=== PATIENT | female | born 1995 | race Caucasian/White ===

== ENCOUNTER 2016-08-04 18:31 | Emergency (ER) | payer OTHER ==
[2016-08-04 18:42] VITALS: BP 131/69; PULSE 76; RESP 18; TEMP 97.2
--- NOTE | 2016-08-04 19:46 | XR ---
EXAMINATION TYPE: XR cervical spine limited DATE OF EXAM: 08/04/2016 7:31 PM COMPARISON: NONE HISTORY: Injury and neck pain TECHNIQUE: 3 views FINDINGS: Cervical vertebra have normal spacing and alignment. Posterior elements are intact. [place] axial facet joint is not well seen. There are no cervical ribs. IMPRESSION: Negative cervical spine exam.
--- NOTE | 2016-08-04 19:47 | XR ---
EXAMINATION TYPE: XR lumbar spine 2 or 3V DATE OF EXAM: 08/04/2016 7:31 PM COMPARISON: NONE HISTORY: Injury and back pain TECHNIQUE: 3 views FINDINGS: Vertebra have normal spacing and alignment. Posterior elements are intact. Sacroiliac joint s appear normal. There is no compression fracture. IMPRESSION: Negative lumbar spine exam.
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
== END 2016-08-04 20:16 | disposition home or self-care (01) ==
LOC: EC 18:31
DX: M54.5 Low back pain (principal); R20.9 Unspecified disturbances of skin sensation; E07.9 Disorder of thyroid, unspecified; K21.9 Gastro-esophageal reflux disease without esophagitis; F32.9 Major depressive disorder, single episode, unspecified; Z79.899 Other long term (current) drug therapy; Z88.8 Allergy status to other drugs, medicaments and biological substances
CPT/HCPCS: 72040; 72100; 99283

== ENCOUNTER 2016-08-10 23:02 | Emergency (ER) | payer OTHER ==
[2016-08-10 23:08] VITALS: TEMP 97.2
[2016-08-10] MEDS ORDERED: KETOROLAC 30 MG/ML 1 ML VIAL IVP STA (23:52)
[2016-08-10] MEDS ORDERED: SODIUM CHLORIDE 0.9% 1,000 ML IV STA (23:52)
[2016-08-11 00:04] LABS: Basophils % (A) 0 %; CHCM 34.2; Eosinophils # (A) 0.2 k/uL (0-0.7); Eosinophils % (A) 2 %; HCT 39.5 % (34.0-46.0); HDW 2.56; HGB 13.5 gm/dL (11.4-16.0); Luc # (Auto) 0.31; Luc % (Auto) 3; Lymphocytes # (A) 3.4 k/uL (1.0-4.8); Lymphocytes % (A) 30 %; MCHC 34.1 g/dL (31.0-37.0); MCV 85.2 fL (80.0-100.0); Mean Platelet Volume 7.7; Monocytes # (A) 0.6 k/uL (0-1.0); Monocytes % (A) 5 %; Neutrophils # (A) 6.9 k/uL (1.3-7.7); Neutrophils % (A) 60 %; RBC 4.64 m/uL (3.80-5.40); RDW 12.5 % (11.5-15.5); WBC 11.5 k/uL (3.8-10.6)
--- NOTE | 2016-08-11 00:08 | ED ---
Abdominal Pain HPI - General Chief Complaint: Abdominal Pain Stated Complaint: revisit abdominal pain Time Seen by Provider: 08/10/16 23:09 Source: patient, RN notes reviewed Mode of arrival: ambulatory Limitations: no limitations - History of Present Illness Initial Comments: Patient is a 21-year-old female with chief complaint of lower back pain for approximately 3 months. Patient reports Micah she was pushing a car tweaked her back at that time. Patient was seen approximately one week ago and was given Flexeril and x-rays of the back were obtained. She denies any new trauma or injury. Patient states that she is able to ambulate and denies any saddle anesthesias. Patient reports that she also today's spell and sharp right upper quadrant pain. Patient reports that he was approximately 30 minutes after eating. She states that she has a family history of gallbladder disease. - Related Data Home Medications Medication Instructions Recorded Confirmed Citalopram Hydrobromide 40 mg PO DAILY 07/21/14 08/04/16 [Citalopram HBr] Norgestimate-Ethinyl Estradiol 1 tab PO HS 07/21/14 08/04/16 [Sprintec 28 Day Tablet] Levothyroxine Sodium [Synthroid] 75 mcg PO DAILY 08/04/16 08/04/16 Ranitidine HCl [Zantac] 150 mg PO BID 08/04/16 08/04/16 Previous Rx's Medication Instructions Recorded Ibuprofen [Motrin] 600 mg PO Q6HR PRN #40 day 08/04/16 Orphenadrine [Norflex] 100 mg PO Q12H #20 tablet.er 08/04/16 Acetaminophen-Codeine 300-30mg 1 tab PO Q4H PRN #20 tablet 08/11/16 [Tylenol #3] Dexamethasone 0.75 mg PO DAILY #12 tab 08/11/16 Allergies Allergy/AdvReac Type Severity Reaction Status Date / Time adhesive Allergy Itching Verified 08/10/16 23:08 Review of Systems ROS Statement: Those systems with pertinent positive or pertinent negative responses have been documented in the HPI. ROS Other: All systems not noted in ROS Statement are negative. Past Medical History Past Medical History: GERD/Reflux, Thyroid Disorder History of Any Multi-Drug Resistant Organisms: None Reported Past Surgical History: Adenoidectomy, Tonsillectomy Past Psychological History: Anxiety, Depression Smoking Status: Never smoker Past Alcohol Use History: Rare Past Drug Use History: None Reported General Exam - General Exam Comments Initial Comments: Well-appearing 21-year-old female. Patient does not appear to be in any acute distress. Limitations: no limitations General appearance: alert, in no apparent distress Head exam: Present: atraumatic, normocephalic, normal inspection Eye exam: Present: normal appearance, PERRL, EOMI. Absent: scleral icterus, conjunctival injection, periorbital swelling ENT exam: Present: normal exam, mucous membranes moist Neck exam: Present: normal inspection. Absent: tenderness, meningismus, lymphadenopathy Respiratory exam: Present: normal lung sounds bilaterally. Absent: respiratory distress, wheezes, rales, rhonchi, stridor Cardiovascular Exam: Present: regular rate, normal rhythm, normal heart sounds. Absent: systolic murmur, diastolic murmur, rubs, gallop, clicks GI/Abdominal exam: Present: soft, tenderness (RUQ tendernes), normal bowel sounds. Absent: distended, guarding, rebound, rigid Extremities exam: Present: normal inspection, full ROM, normal capillary refill. Absent: tenderness, pedal edema, joint swelling, calf tenderness Back exam: Present: normal inspection Neurological exam: Present: alert, oriented X3, CN II-XII intact Psychiatric exam: Present: normal affect, normal mood Skin exam: Present: warm, dry, intact, normal color. Absent: rash Course Vital Signs 08/10/16 23:04 Temperature 97.2 F L Pulse Rate 86 Respiratory 18 Rate Blood Pressure 135/71 O2 Sat by Pulse 99 Oximetry Medical Decision Making - Medical Decision Making Patient is a well-appearing 21 -year-old female with chief complaint of chronic lower back pain and acute right upper quadrant abdominal pain. Patient had recent imaging study of her lower back one week ago and showed no acute abnormalities. Patient denies any recent trauma. Patient states she's had normal urination and bowel movements denies any vaginal discharge. Patient was given IV fluids and labs are obtained. Patient's labs are negative for any acute process. Patient did have some right upper quadrant tenderness GALLBLADDER WAS OBTAINED. THERE IS EVIDENCE OF HEPATOMEGALY OTHERWISE UNREMARKABLE EXAM. KUB WAS ALSO COMPLETED AND NO OBSTRUCTIVE BOWEL GAS PATTERN. PATIENT WILL BE DISCHARGED AT THIS TIME INSTRUCTED TO FOLLOW-UP WITH PRIMARY CARE PROVIDER. PATIENT WILL BE GIVEN A PRESCRIPTION FOR DEXAMETHASONE SHE STATES THAT HER PAIN DOES RADIATE DOWN HER LEG. PATIENT ALSO BE GIVEN A PRESCRIPTION FOR TYLENOL 3 FOR PAIN. PATIENT STATES THAT SHE STILL HAS CONTINUED MUSCLE RELAXERS AT HOME. PATIENT IS HISTORY PLAN WILL COMPLY. RETURN PARAMETERS WERE DISCUSSED. - Lab Data Result diagrams: 08/10/16 23:36 08/10/16 23:36 Lab Results 08/10/16 08/10/16 08/10/16 Range/Units 23:36 23:36 23:36 WBC 11.5 H (3.8-10.6) k/uL RBC 4.64 (3.80-5.40) m/uL Hgb 13.5 (11.4-16.0) gm/dL Hct 39.5 (34.0-46.0) % MCV 85.2 (80.0-100.0) fL MCH 29.0 (25.0-35.0) pg MCHC 34.1 (31.0-37.0) g/dL RDW 12.5 (11.5-15.5) % Plt Count 283 (150-450) k/uL Neutrophils % 60 % Lymphocytes % 30 % Monocytes % 5 % Eosinophils % 2 % Basophils % 0 % Neutrophils # 6.9 (1.3-7.7) k/uL Lymphocytes # 3.4 (1.0-4.8) k/uL Monocytes # 0.6 (0-1.0) k/uL Eosinophils # 0.2 (0-0.7) k/uL Basophils # 0.0 (0-0.2) k/uL Sodium 140 (137-145) mmol/L Potassium 4.0 (3.5-5.1) mmol/L Chloride 101 (98-107) mmol/L Carbon Dioxide 28 (22-30) mmol/L Anion Gap 11 mmol/L BUN 15 (7-17) mg/dL Creatinine 0.70 (0.52-1.04) mg/dL Est GFR (MDRD) Af Amer >60 (>60 ml/min/1.73 sqM) Est GFR (MDRD) Non-Af >60 (>60 ml/min/1.73 sqM) Glucose 91 (74-99) mg/dL Calcium 9.5 (8.4-10.2) mg/dL Total Bilirubin 0.4 (0.2-1.3) mg/dL AST 24 (14-36) U/L ALT 34 (9-52) U/L Alkaline Phosphatase 58 (38-126) U/L Total Protein 7.4 (6.3-8.2) g/dL Albumin 4.1 (3.5-5.0) g/dL Amylase 44 (30-110) U/L Lipase 34 (23-300) U/L Urine Color Urine Appearance (Clear) Urine pH (5.0-8.0) Ur Specific [place] (1.001-1.035) Urine Protein (Negative) Urine Glucose (UA) (Negative) Urine Ketones (Negative) Urine Blood (Negative) Urine Nitrate (Negative) Urine Bilirubin (Negative) Urine Urobilinogen (<2.0) mg/dL Ur Leukocyte Esterase (Negative) Urine WBC (0-5) /hpf Ur Squamous Epith Cells (0-4) /hpf Amorphous Sediment (None) /hpf Urine Bacteria (None) /hpf Urine Mucus (None) /hpf Urine HCG, Qual Not Detected (Not Detectd) 08/10/16 Range/Units 23:36 WBC (3.8-10.6) k/uL RBC (3.80-5.40) m/uL Hgb (11.4-16.0) gm/dL Hct (34.0-46.0) % MCV (80.0-100.0) fL MCH (25.0-35.0) pg MCHC (31.0-37.0) g/dL RDW (11.5-15.5) % Plt Count (150-450) k/uL Neutrophils % % Lymphocytes % % Monocytes % % Eosinophils % % Basophils % % Neutrophils # (1.3-7.7) k/uL Lymphocytes # (1.0-4.8) k/uL Monocytes # (0-1.0) k/uL Eosinophils # (0-0.7) k/uL Basophils # (0-0.2) k/uL Sodium (137-145) mmol/L Potassium (3.5-5.1) mmol/L Chloride (98-107) mmol/L Carbon Dioxide (22-30) mmol/L Anion Gap mmol/L BUN (7-17) mg/dL Creatinine (0.52-1.04) mg/dL Est GFR (MDRD) Af Amer (>60 ml/min/1.73 sqM) Est GFR (MDRD) Non-Af (>60 ml/min/1.73 sqM) Glucose (74-99) mg/dL Calcium (8.4-10.2) mg/dL Total Bilirubin (0.2-1.3) mg/dL AST (14-36) U/L ALT (9-52) U/L Alkaline Phosphatase (38-126) U/L Total Protein (6.3-8.2) g/dL Albumin (3.5-5.0) g/dL Amylase (30-110) U/L Lipase (23-300) U/L Urine Color Yellow Urine Appearance Cloudy H (Clear) Urine pH 6.5 (5.0-8.0) Ur Specific [place] 1.020 (1.001-1.035) Urine Protein Negative (Negative) Urine Glucose (UA) Negative (Negative) Urine Ketones Negative (Negative) Urine Blood Negative (Negative) Urine Nitrate Negative (Negative) Urine Bilirubin Negative (Negative) Urine Urobilinogen <2.0 (<2.0) mg/dL Ur Leukocyte Esterase Negative (Negative) Urine WBC 1 (0-5) /hpf Ur Squamous Epith Cells 6 H (0-4) /hpf Amorphous Sediment Rare H (None) /hpf Urine Bacteria Occasional H (None) /hpf Urine Mucus Rare H (None) /hpf Urine HCG, Qual (Not Detectd) Disposition Clinical Impression: RUQ abdominal pain, Hepatomegaly, Chronic lower back pain Disposition: HOME SELF-CARE Condition: Good Instructions: Abdominal Pain (ED), Lumbar Radiculopathy (ED) Additional Instructions: Patient advised to follow up with PCP in 1-2 days. Return to the emergency department if any alarming signs or symptoms occur. Prescriptions: Acetaminophen-Codeine 300-30mg [Tylenol #3] 1 tab PO Q4H PRN #20 tablet PRN Reason: Pain Dexamethasone 0.75 mg PO DAILY #12 tab Referrals: José Jackson DO [Primary Care Provider] - 1-2 days Time of Disposition: 00:56
[2016-08-11 00:11] LABS: Amorphous Sediment,Urine Rare /hpf; Appearance,Urine Cloudy (Clear); Bacteria,Urine Occasional /hpf; Bilirubin,Urine Negative (Negative); Glucose,Urine (UA) Negative (Negative); Ketones,Urine Negative (Negative); Leukocyte Esterase,Urine Negative (Negative); Mucus,Urine Rare /hpf; Nitrite,Urine Negative (Negative); PH, Urine 6.5 (5.0-8.0); Particle Count 21104; Protein,Urine Negative (Negative); Squamous Epithelial Cell,Urine 6 /hpf (0-4); UA Billing (MACRO vs. MICRO) MICRO; Urobilinogen,Urine <2.0 mg/dL (<2.0); WBC,Urine 1 /hpf (0-5)
[2016-08-11 00:20] LABS: ALT 34 U/L (9-52); AST 24 U/L (14-36); Alkaline Phosphatase 58 U/L (38-126); Amylase 44 U/L (30-110); Anion Gap 11 mmol/L; Blood Urea Nitrogen 15 mg/dL (7-17); Calcium 9.5 mg/dL (8.4-10.2); Carbon Dioxide 28 mmol/L (22-30); Chloride 101 mmol/L (98-107); Glucose 91 mg/dL (74-99); Non-African American GFR(MDRD) >60 (>60 ml/min/1.73 sqM); Sodium 140 mmol/L (137-145); Total Bilirubin 0.4 mg/dL (0.2-1.3); Total Protein 7.4 g/dL (6.3-8.2)
--- NOTE | 2016-08-11 00:37 | US ---
INDICATION: Abdominal pain, nausea TECHNIQUE: Real-time imaging of the gallbladder is performed in transverse and longitudinal projections. COMPARISON: None. FINDINGS: The liver is enlarged measuring 21.5 cm and increased in echogenicity suggesting steatosis. No focal hepatic lesion is identified. There is no intrahepatic biliary dilatation. The gallbladder is contracted. There is no gallbladder wall thickening, pericholecystic fluid, or sonographic Hall sign. There is no cholelithiasis or sludge. CBD measures 2.6 mm. Right kidney is within normal limits. There is no hydronephrosis. 0.26 Right kidney is within normal limits. Liver Length: 21.5 cm IMPRESSION: 1. Hepatomegaly and steatosis. 2. No evidence of acute cholecystitis. 3. Normal right kidney.
--- NOTE | 2016-08-11 00:46 | XR ---
INDICATION: Abdominal pain COMPARISON: None available FINDINGS: Single frontal view of the abdomen demonstrates a normal bowel gas pattern. The liver is enlarged. There is no evidence of abnormal soft tissue mass. The osseous structures are intact. IMPRESSION: 1. Hepatomegaly. 2. Otherwise, unremarkable exam.
[2016-08-11 01:30] VITALS: BP 133/84; PULSE 74; RESP 16
== END 2016-08-11 01:29 | disposition home or self-care (01) ==
LOC: EC 23:02
DX: R10.11 Right upper quadrant pain (principal); M54.16 Radiculopathy, lumbar region; R16.0 Hepatomegaly, not elsewhere classified; K21.9 Gastro-esophageal reflux disease without esophagitis; E07.9 Disorder of thyroid, unspecified; F32.9 Major depressive disorder, single episode, unspecified; F41.9 Anxiety disorder, unspecified; Z79.899 Other long term (current) drug therapy; Z91.048 Other nonmedicinal substance allergy status
CPT/HCPCS: 36415; 80053; 82150; 83690; 85025; 81001; 81025; 74000; 76705; 99284; 96374; 96361; J1885; 84439; 84443

== ENCOUNTER 2016-11-15 19:33 | Emergency (ER) | payer OTHER ==
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
[2016-11-15 22:52] VITALS: BP 152/74; PULSE 92; RESP 16; TEMP 97.9
== END 2016-11-15 22:50 | disposition home or self-care (01) ==
LOC: EC 19:33
DX: F32.9 Major depressive disorder, single episode, unspecified (principal); K21.9 Gastro-esophageal reflux disease without esophagitis; E07.9 Disorder of thyroid, unspecified; Z91.048 Other nonmedicinal substance allergy status; Z79.899 Other long term (current) drug therapy
CPT/HCPCS: 80306; 82075; 99284

== ENCOUNTER 2017-01-23 10:51 | Emergency (ER) | payer OTHER ==
[2017-01-23 10:56] VITALS: RESP 18
[2017-01-23] MEDS ORDERED: MORPHINE SULFATE 4 MG/ML SYRINGE IV STA (11:21)
[2017-01-23] MEDS ORDERED: SODIUM CHLORIDE 0.9% 1,000 ML IV STA (11:21)
[2017-01-23] MEDS ORDERED: PANTOPRAZOLE 40 MG/10 ML VIAL IVP STA (11:21)
[2017-01-23] MEDS ORDERED: ONDANSETRON 4 MG/2 ML VIAL IVP STA (11:21)
[2017-01-23 11:55] LABS: Basophils % (A) 0 %; CH 30.1; CHCM 34.8; Eosinophils # (A) 0.2 k/uL (0-0.7); Eosinophils % (A) 2 %; HCT 42.6 % (34.0-46.0); HDW 2.49; HGB 14.2 gm/dL (11.4-16.0); Luc # (Auto) 0.15; Luc % (Auto) 2; Lymphocytes # (A) 2.2 k/uL (1.0-4.8); Lymphocytes % (A) 25 %; MCHC 33.4 g/dL (31.0-37.0); MCV 86.7 fL (80.0-100.0); Monocytes # (A) 0.5 k/uL (0-1.0); Monocytes % (A) 5 %; Neutrophils # (A) 5.8 k/uL (1.3-7.7); Neutrophils % (A) 67 %; RBC 4.91 m/uL (3.80-5.40); RDW 14.4 % (11.5-15.5); WBC 8.7 k/uL (3.8-10.6); WBC (Perox) 8.71
[2017-01-23 12:01] LABS: Appearance,Urine Cloudy (Clear); Bacteria,Urine Rare /hpf; Bilirubin,Urine Negative (Negative); Glucose,Urine (UA) Negative (Negative); Ketones,Urine Negative (Negative); Leukocyte Esterase,Urine Negative (Negative); Mucus,Urine Rare /hpf; Nitrite,Urine Negative (Negative); Particle Count 4909; Protein,Urine Negative (Negative); RBC,Urine 1 /hpf (0-5); Specific Gravity,Urine 1.015 (1.001-1.035); Squamous Epithelial Cell,Urine 7 /hpf (0-4); UA Billing (MACRO vs. MICRO) MICRO; Urobilinogen,Urine <2.0 mg/dL (<2.0); WBC,Urine <1 /hpf (0-5)
[2017-01-23 12:03] LABS: ALT 37 U/L (9-52); AST 27 U/L (14-36); Alkaline Phosphatase 54 U/L (38-126); Amylase 30 U/L (30-110); Anion Gap 9 mmol/L; Blood Urea Nitrogen 8 mg/dL (7-17); Calcium 9.1 mg/dL (8.4-10.2); Carbon Dioxide 22 mmol/L (22-30); Chloride 109 mmol/L (98-107); Glucose 93 mg/dL (74-99); Non-African American GFR(MDRD) >60 (>60 ml/min/1.73 sqM); Potassium 4.8 mmol/L (3.5-5.1); Sodium 140 mmol/L (137-145); Total Bilirubin 0.7 mg/dL (0.2-1.3); Total Protein 7.2 g/dL (6.3-8.2)
--- NOTE | 2017-01-23 12:22 | ED ---
General Adult HPI - General Chief complaint: Abdominal Pain Stated complaint: abd pain Time Seen by Provider: 01/23/17 11:13 Source: patient, RN notes reviewed, old records reviewed Mode of arrival: ambulatory Limitations: no limitations - History of Present Illness Initial comments: This is a 21-year-old female year for this patient. Patient's is negative for evaluation regarding abdominal pain, diffuse and generalized dull pain epigastric and diffuse again. Patient states pain started about 4 days ago on her left side and is been radiating and moving around or since. No modifying factors or pain, nothing makes it worse nothing seems to make it better. Patient's eating and going to the bathroom without difficulty no bladder issues. Denies . Patient is on control, did recently start a weight loss supplement, but otherwise has no change in medications. No fevers or travel history no sick contacts. No nausea or vomiting. No diarrhea - Related Data Home Medications Medication Instructions Recorded Confirmed Citalopram Hydrobromide 40 mg PO HS 07/21/14 01/23/17 [Citalopram HBr] Norgestimate-Ethinyl Estradiol 1 tab PO HS 07/21/14 01/23/17 [Sprintec 28 Day Tablet] Ranitidine HCl [Zantac] 150 mg PO HS 08/04/16 01/23/17 Ergocalciferol [Vitamin D2] 50,000 unit PO SA 11/15/16 01/23/17 Levothyroxine Sodium [Synthroid] 100 mcg PO DAILY 11/15/16 01/23/17 Ciprofloxacin HCl [Cipro] 500 mg PO BID 01/23/17 01/23/17 Phentermine HCl [Adipex-P] 37.5 mg PO DAILY 01/23/17 01/23/17 Allergies Allergy/AdvReac Type Severity Reaction Status Date / Time adhesive tape Allergy Itching Verified 01/23/17 11:33 Review of Systems ROS Statement: Those systems with pertinent positive or pertinent negative responses have been documented in the HPI. ROS Other: All systems not noted in ROS Statement are negative. Past Medical History Past Medical History: GERD/Reflux, Thyroid Disorder History of Any Multi-Drug Resistant Organisms: None Reported Past Surgical History: Adenoidectomy, Tonsillectomy Past Psychological History: Anxiety, Depression Smoking Status: Never smoker Past Alcohol Use History: Rare Past Drug Use History: None Reported General Exam Limitations: no limitations General appearance: alert, in no apparent distress, obese Head exam: Present: atraumatic, normocephalic, normal inspection Eye exam: Present: normal appearance, PERRL, EOMI. Absent: scleral icterus, conjunctival injection, periorbital swelling ENT exam: Present: normal exam, mucous membranes moist Neck exam: Present: normal inspection. Absent: tenderness, meningismus, lymphadenopathy Respiratory exam: Present: normal lung sounds bilaterally. Absent: respiratory distress, wheezes, rales, rhonchi, stridor Cardiovascular Exam: Present: regular rate, normal rhythm, normal heart sounds. Absent: systolic murmur, diastolic murmur, rubs, gallop, clicks GI/Abdominal exam: Present: soft, normal bowel sounds. Absent: distended, tenderness, guarding, rebound, rigid Extremities exam: Present: normal inspection, full ROM, normal capillary refill. Absent: tenderness, pedal edema, joint swelling, calf tenderness Back exam: Present: normal inspection Neurological exam: Present: alert, oriented X3, CN II-XII intact Psychiatric exam: Present: normal affect, normal mood Skin exam: Present: warm, dry, intact, normal color. Absent: rash Course Vital Signs 01/23/17 01/23/17 10:53 12:38 Temperature 99 F Pulse Rate 79 82 Respiratory 18 18 Rate Blood Pressure 139/80 126/71 O2 Sat by Pulse 98 95 Oximetry - Reevaluation(s) Reevaluation #1: 01/23/17 12:22 Patient does at this time adequate pain control and symptomatic therapy Reevaluation #2: 01/23/17 13:34 Patient remains with good pain control Medical Decision Making - Medical Decision Making 21 female diffuse abdominal pain, positive constipation likely ileus and obstruction. Patient was given bowel regimen encouraged fluid intake and discharge home - Lab Data Result diagrams: 01/23/17 11:40 01/23/17 11:40 Lab Results 01/23/17 01/23/17 01/23/17 Range/Units 11:40 11:40 11:40 WBC 8.7 (3.8-10.6) k/uL RBC 4.91 (3.80-5.40) m/uL Hgb 14.2 (11.4-16.0) gm/dL Hct 42.6 (34.0-46.0) % MCV 86.7 (80.0-100.0) fL MCH 29.0 (25.0-35.0) pg MCHC 33.4 (31.0-37.0) g/dL RDW 14.4 (11.5-15.5) % Plt Count 304 (150-450) k/uL Neutrophils % 67 % Lymphocytes % 25 % Monocytes % 5 % Eosinophils % 2 % Basophils % 0 % Neutrophils # 5.8 (1.3-7.7) k/uL Lymphocytes # 2.2 (1.0-4.8) k/uL Monocytes # 0.5 (0-1.0) k/uL Eosinophils # 0.2 (0-0.7) k/uL Basophils # 0.0 (0-0.2) k/uL Sodium 140 (137-145) mmol/L Potassium 4.8 (3.5-5.1) mmol/L Chloride 109 H (98-107) mmol/L Carbon Dioxide 22 (22-30) mmol/L Anion Gap 9 mmol/L BUN 8 (7-17) mg/dL Creatinine 0.59 (0.52-1.04) mg/dL Est GFR (MDRD) Af Amer >60 (>60 ml/min/1.73 sqM) Est GFR (MDRD) Non-Af >60 (>60 ml/min/1.73 sqM) Glucose 93 (74-99) mg/dL Calcium 9.1 (8.4-10.2) mg/dL Total Bilirubin 0.7 (0.2-1.3) mg/dL AST 27 (14-36) U/L ALT 37 (9-52) U/L Alkaline Phosphatase 54 (38-126) U/L Total Protein 7.2 (6.3-8.2) g/dL Albumin 3.9 (3.5-5.0) g/dL Amylase 30 (30-110) U/L Lipase 17 L (23-300) U/L Urine Color Urine Appearance (Clear) Urine pH (5.0-8.0) Ur Specific [place] (1.001-1.035) Urine Protein (Negative) Urine Glucose (UA) (Negative) Urine Ketones (Negative) Urine Blood (Negative) Urine Nitrite (Negative) Urine Bilirubin (Negative) Urine Urobilinogen (<2.0) mg/dL Ur Leukocyte Esterase (Negative) Urine RBC (0-5) /hpf Urine WBC (0-5) /hpf Ur Squamous Epith Cells (0-4) /hpf Urine Bacteria (None) /hpf Urine Mucus (None) /hpf Urine HCG, Qual Not Detected (Not Detectd) 01/23/17 Range/Units 11:40 WBC (3.8-10.6) k/uL RBC (3.80-5.40) m/uL Hgb (11.4-16.0) gm/dL Hct (34.0-46.0) % MCV (80.0-100.0) fL MCH (25.0-35.0) pg MCHC (31.0-37.0) g/dL RDW (11.5-15.5) % Plt Count (150-450) k/uL Neutrophils % % Lymphocytes % % Monocytes % % Eosinophils % % Basophils % % Neutrophils # (1.3-7.7) k/uL Lymphocytes # (1.0-4.8) k/uL Monocytes # (0-1.0) k/uL Eosinophils # (0-0.7) k/uL Basophils # (0-0.2) k/uL Sodium (137-145) mmol/L Potassium (3.5-5.1) mmol/L Chloride (98-107) mmol/L Carbon Dioxide (22-30) mmol/L Anion Gap mmol/L BUN (7-17) mg/dL Creatinine (0.52-1.04) mg/dL Est GFR (MDRD) Af Amer (>60 ml/min/1.73 sqM) Est GFR (MDRD) Non-Af (>60 ml/min/1.73 sqM) Glucose (74-99) mg/dL Calcium (8.4-10.2) mg/dL Total Bilirubin (0.2-1.3) mg/dL AST (14-36) U/L ALT (9-52) U/L Alkaline Phosphatase (38-126) U/L Total Protein (6.3-8.2) g/dL Albumin (3.5-5.0) g/dL Amylase (30-110) U/L Lipase (23-300) U/L Urine Color Yellow Urine Appearance Cloudy H (Clear) Urine pH 6.0 (5.0-8.0) Ur Specific [place] 1.015 (1.001-1.035) Urine Protein Negative (Negative) Urine Glucose (UA) Negative (Negative) Urine Ketones Negative (Negative) Urine Blood Negative (Negative) Urine Nitrite Negative (Negative) Urine Bilirubin Negative (Negative) Urine Urobilinogen <2.0 (<2.0) mg/dL Ur Leukocyte Esterase Negative (Negative) Urine RBC 1 (0-5) /hpf Urine WBC <1 (0-5) /hpf Ur Squamous Epith Cells 7 H (0-4) /hpf Urine Bacteria Rare H (None) /hpf Urine Mucus Rare H (None) /hpf Urine HCG, Qual (Not Detectd) - Radiology Data Radiology results: report reviewed (X-ray balusters positive constipation, ultrasound gallbladder negative), image reviewed Disposition Clinical Impression: Constipation, Abdominal pain Disposition: HOME SELF-CARE Instructions: Abdominal Pain (ED), Constipation (ED) Referrals: José Jackson DO [Primary Care Provider] - 1-2 days
--- NOTE | 2017-01-23 13:18 | XR ---
EXAMINATION TYPE: XR abdomen acute w cxr DATE OF EXAM: 01/23/2017 COMPARISON: NONE HISTORY: Abdominal pain for 5 days TECHNIQUE: Supine, upright, and left side down lateral decubitus views of the abdomen are obtained. FINDINGS: There is no evidence for pneumoperitoneum. Few loops of prominent small bowel are seen within the left mid abdomen measuring up to 3.3 cm. Air a nd stool is seen throughout the colon. No sizeable air fluid levels. No mass effects are seen. No unusual calcifications. IMPRESSION: Minimally dilated few loops of small bowel, likely related to ileus.
[2017-01-23 13:34] VITALS: BP 114/62; PULSE 78; TEMP 98.2
[2017-01-23] MEDS ORDERED: GLYCERIN ADULT SUPPOSITORY 1 EACH RECTAL STA (13:35)
[2017-01-23] MEDS ORDERED: MAGNESIUM CITRATE 296 ML BOTTLE PO ONE (13:35)
[2017-01-23] MEDS ORDERED: BISACODYL 5 MG TABLET.DR PO STA (13:38)
[2017-01-23] MEDS ORDERED: SENNOSIDES-DOCUSATE SODIUM 1 EACH TAB PO STA (13:39)
--- NOTE | 2017-01-23 13:41 | US ---
EXAMINATION TYPE: US gallbladder DATE OF EXAM: 01/23/2017 COMPARISON: 08/11/2016 CLINICAL HISTORY: Pain. Epigastric pain EXAM MEASUREMENTS: Liver Length: 19.1 cm Gallbladder Wall: 0.2 cm CBD: 0.5 cm Right Kidney: 11.2 x 4.8 x 5.6 cm Pancreas: Obscured by bowel gas Liver: enlarged, attenuating, area of increased echogenicity = 4.4cm near wilfredo hepatis Gallbladder: mobile stones Evidence for sonographic Hall's sign: Yes CBD: limited evaluation, appears wnl Right Kidney: no evidence of hydronephrosis or mass IMPRESSION: 1. Cholelithiasis without sonographic evidence of cholecystitis. 2. Avascular region of geographic hyperechogenicity superimposed upon a background of coarsened hepat ic parenchyma likely relates to an area of fatty infiltration. Global heterogeneity also most likely represents hepatic steatosis although other hepatocellular disease remains in the differential. This area near the wilfredo hepatis was not appreciated on the prior examination of 08/11/2016 and therefore c ould be further evaluated with dynamic enhanced CT abdomen.
== END 2017-01-23 14:17 | disposition home or self-care (01) ==
LOC: EC 10:51
DX: R10.13 Epigastric pain (principal); K59.00 Constipation, unspecified; K80.20 Calculus of gallbladder without cholecystitis without obstruction; K21.9 Gastro-esophageal reflux disease without esophagitis; E07.9 Disorder of thyroid, unspecified; F32.9 Major depressive disorder, single episode, unspecified; Z91.048 Other nonmedicinal substance allergy status; Z79.3 Long term (current) use of hormonal contraceptives; Z79.899 Other long term (current) drug therapy
CPT/HCPCS: 99285; 96374; 96375 ×2; 96361; 36415; 80053; 82150; 83690; 85025; 81001; 81025; 87086; 74022; 76705; J2270; J2405; C9113

== ENCOUNTER 2017-01-26 01:45 | Emergency (ER) | payer OTHER ==
--- NOTE | 2017-01-26 03:10 | XR ---
EXAM: XR Abdomen Complete With XR Chest CLINICAL HISTORY: Reason: Pain TECHNIQUE: Frontal view of the chest, frontal view of the abdomen/pelvis and upright view of the abdomen. COMPARISON: 01/23/2017 FINDINGS: Lungs: Unremarkable. No consolidation. Pleural space: Unremarkable. No pneumothorax. Heart: Unremarkable. No cardiomegaly. Mediastinum: Unremarkable. Intraperitoneal space: No free air. Gastrointestinal tract: Unremarkable. No dilation. Bones/joints: Unremarkable. IMPRESSION: No acute findings.
[2017-01-26 04:00] LABS: Appearance,Urine Clear (Clear); Bilirubin,Urine Negative (Negative); Glucose,Urine (UA) Negative (Negative); Ketones,Urine Negative (Negative); Leukocyte Esterase,Urine Negative (Negative); Nitrite,Urine Negative (Negative); Protein,Urine Negative (Negative); Specific Gravity,Urine 1.011 (1.001-1.035); UA Billing (MACRO vs. MICRO) CHEM; Urobilinogen,Urine <2.0 mg/dL (<2.0)
[2017-01-26 04:12] VITALS: RESP 16
[2017-01-26 06:16] LABS: ALT 40 U/L (9-52); AST 24 U/L (14-36); Alkaline Phosphatase 59 U/L (38-126); Amylase 32 U/L (30-110); Anion Gap 10 mmol/L; Blood Urea Nitrogen 8 mg/dL (7-17); C Reactive Protein 15.5 mg/L (<10.0); Calcium 9.1 mg/dL (8.4-10.2); Carbon Dioxide 19 mmol/L (22-30); Chloride 108 mmol/L (98-107); Glucose 107 mg/dL (74-99); Non-African American GFR(MDRD) >60 (>60 ml/min/1.73 sqM); Potassium 4.4 mmol/L (3.5-5.1); Sodium 137 mmol/L (137-145); Total Bilirubin 0.3 mg/dL (0.2-1.3)
[2017-01-26 06:19] LABS: Basophils # (A) 0.1 k/uL (0-0.2); Basophils % (A) 1 %; CH 29.7; CHCM 33.8; Eosinophils # (A) 0.2 k/uL (0-0.7); Eosinophils % (A) 2 %; HCT 42.2 % (34.0-46.0); HDW 2.47; HGB 13.9 gm/dL (11.4-16.0); Luc # (Auto) 0.25; Luc % (Auto) 2; Lymphocytes # (A) 2.9 k/uL (1.0-4.8); Lymphocytes % (A) 27 %; MCH 29.1 pg (25.0-35.0); MCHC 32.9 g/dL (31.0-37.0); MCV 88.4 fL (80.0-100.0); Mean Platelet Volume 7.8; Monocytes # (A) 0.7 k/uL (0-1.0); Monocytes % (A) 7 %; Neutrophils # (A) 6.5 k/uL (1.3-7.7); Neutrophils % (A) 61 %; RBC 4.78 m/uL (3.80-5.40); RDW 14.1 % (11.5-15.5); WBC 10.6 k/uL (3.8-10.6); WBC (Perox) 10.42
--- NOTE | 2017-01-26 08:39 | ED ---
Abdominal Pain HPI - General Source: patient Mode of arrival: ambulatory Limitations: no limitations - History of Present Illness MD Complaint: abdominal pain Onset/Timin -: week(s) Location: epigastric Radiation: none Migration to: no migration Severity: mild Quality: fullness, other (Bloating) Consistency: intermittent Improves With: nothing Worsens With: nothing Associated Symptoms: nausea <Sagar Gardner - Last Filed: 01/26/17 08:34> <Christo Ruiz - Last Filed: 01/26/17 09:49> - General Chief Complaint: Abdominal Pain Stated Complaint: Nausea,vomiting Time Seen by Provider: 01/26/17 01:54 - History of Present Illness Initial Comments: This patient is a 21-year-old woman who presents to be evaluated for which she believes is constipation. She states she has had approximately 2 weeks of symptoms that include feeling of bloating or fullness located mainly in the epigastric area, some diffuse cramping in the abdomen, and then over the past day some intermittent nausea. She states that she was seen here 2 days ago and she went home with been using citrate which she took but did not have a bowel movement. The patient states she had a small amount of stool that she passed yesterday that she had to drink a number of cups of coffee to promote. She denies fever or chills. She denies any change in urination. The patient has not passed any blood with her last bowel movement. She has not had any dark tarry stools. (Sagar Gardner) - Related Data Home Medications Medication Instructions Recorded Confirmed Citalopram Hydrobromide 40 mg PO HS 07/21/14 01/26/17 [Citalopram HBr] Norgestimate-Ethinyl Estradiol 1 tab PO HS 07/21/14 01/26/17 [Sprintec 28 Day Tablet] Ranitidine HCl [Zantac] 150 mg PO HS 08/04/16 01/26/17 Ergocalciferol [Vitamin D2] 50,000 unit PO SA 11/15/16 01/26/17 Levothyroxine Sodium [Synthroid] 100 mcg PO DAILY 11/15/16 01/26/17 Ciprofloxacin HCl [Cipro] 500 mg PO BID 01/23/17 01/26/17 Phentermine HCl [Adipex-P] 37.5 mg PO DAILY 01/23/17 01/26/17 Previous Rx's Medication Instructions Recorded Metoclopramide [Reglan] 5 mg PO ACHS #20 tab 01/26/17 Allergies Allergy/AdvReac Type Severity Reaction Status Date / Time adhesive tape Allergy Itching Verified 01/26/17 07:54 Review of Systems ROS Other: All systems not noted in ROS Statement are negative. Constitutional: Denies: fever, chills Respiratory: Denies: cough, dyspnea Cardiovascular: Denies: chest pain, palpitations, syncope Gastrointestinal: Reports: abdominal pain, nausea, constipation. Denies: vomiting, diarrhea, melena, hematochezia Genitourinary: Denies: dysuria, hematuria, discharge Musculoskeletal: Denies: back pain Skin: Denies: rash <Sagar Gardner - Last Filed: 01/26/17 08:34> ROS Other: All systems not noted in ROS Statement are negative. <Christo Ruiz - Last Filed: 01/26/17 09:49> ROS Statement: Those systems with pertinent positive or pertinent negative responses have been documented in the HPI. Past Medical History Past Medical History: GERD/Reflux, Thyroid Disorder History of Any Multi-Drug Resistant Organisms: None Reported Past Surgical History: Adenoidectomy, Tonsillectomy Past Psychological History: Anxiety, Depression Smoking Status: Never smoker Past Alcohol Use History: Rare Past Drug Use History: None Reported <Sagar Gardner - Last Filed: 01/26/17 08:34> General Exam Limitations: no limitations General appearance: alert, obese Head exam: Present: atraumatic, normocephalic Eye exam: Present: normal appearance. Absent: scleral icterus, conjunctival injection ENT exam: Present: normal oropharynx Neck exam: Present: normal inspection Respiratory exam: Present: normal lung sounds bilaterally. Absent: respiratory distress, wheezes, rales, rhonchi, stridor Cardiovascular Exam: Present: regular rate, normal rhythm, normal heart sounds. Absent: systolic murmur, diastolic murmur, rubs, gallop GI/Abdominal exam: Present: soft, normal bowel sounds. Absent: distended, tenderness, guarding, rebound, mass, pulsatile mass, hernia Extremities exam: Absent: full ROM, pedal edema Neurological exam: Present: altered Skin exam: Present: warm, dry, intact, normal color. Absent: rash, cyanosis, diaphoretic, erythema, petechiae, pallor, mottled <Sagar Gardner - Last Filed: 01/26/17 08:34> Course <Sagar Gardner - Last Filed: 01/26/17 08:34> <Christo Ruiz - Last Filed: 01/26/17 09:49> Vital Signs 01/26/17 01/26/17 01/26/17 01:48 04:11 06:28 Temperature 98 F Pulse Rate 88 68 74 Respiratory 20 16 16 Rate Blood Pressure 142/85 122/60 125/65 O2 Sat by Pulse 99 100 100 Oximetry 01/26/17 09:00 Temperature 97.8 F Pulse Rate 71 Respiratory 16 Rate Blood Pressure 123/57 O2 Sat by Pulse 100 Oximetry - Reevaluation(s) Reevaluation #1: 01/26/17 09:46 The patient was endorsed to me by Dr. Gardner at our shift change. Patient was pending CAT scan results. CAT scan showed no acute findings. I did discuss with the patient regarding her she will be discharged placed on prescription severity given by Dr. Gardner follow-up with her doctor return when necessary ( Christo Ruiz) Medical Decision Making - Lab Data Result diagrams: 01/26/17 05:45 01/26/17 05:45 <Sagar Gardner - Last Filed: 01/26/17 08:34> - Lab Data Result diagrams: 01/26/17 05:45 01/26/17 05:45 <Christo Ruiz - Last Filed: 01/26/17 09:49> - Lab Data Lab Results 01/26/17 01/26/17 01/26/17 Range/Units 03:54 03:54 05:45 WBC 10.6 (3.8-10.6) k/uL RBC 4.78 (3.80-5.40) m/uL Hgb 13.9 (11.4-16.0) gm/dL Hct 42.2 (34.0-46.0) % MCV 88.4 (80.0-100.0) fL MCH 29.1 (25.0-35.0) pg MCHC 32.9 (31.0-37.0) g/dL RDW 14.1 (11.5-15.5) % Plt Count 307 (150-450) k/uL Neutrophils % 61 % Lymphocytes % 27 % Monocytes % 7 % Eosinophils % 2 % Basophils % 1 % Neutrophils # 6.5 (1.3-7.7) k/uL Lymphocytes # 2.9 (1.0-4.8) k/uL Monocytes # 0.7 (0-1.0) k/uL Eosinophils # 0.2 (0-0.7) k/uL Basophils # 0.1 (0-0.2) k/uL Sodium (137-145) mmol/L Potassium (3.5-5.1) mmol/L Chloride (98-107) mmol/L Carbon Dioxide (22-30) mmol/L Anion Gap mmol/L BUN (7-17) mg/dL Creatinine (0.52-1.04) mg/dL Est GFR (MDRD) Af Amer (>60 ml/min/1.73 sqM) Est GFR (MDRD) Non-Af (>60 ml/min/1.73 sqM) Glucose (74-99) mg/dL Calcium (8.4-10.2) mg/dL Total Bilirubin (0.2-1.3) mg/dL AST (14-36) U/L ALT (9-52) U/L Alkaline Phosphatase (38-126) U/L C-Reactive Protein (<10.0) mg/L Total Protein (6.3-8.2) g/dL Albumin (3.5-5.0) g/dL Amylase (30-110) U/L Lipase (23-300) U/L Urine Color Yellow Urine Appearance Clear (Clear) Urine pH 6.0 (5.0-8.0) Ur Specific [place] 1.011 (1.001-1.035) Urine Protein Negative (Negative) Urine Glucose (UA) Negative (Negative) Urine Ketones Negative (Negative) Urine Blood Negative (Negative) Urine Nitrite Negative (Negative) Urine Bilirubin Negative (Negative) Urine Urobilinogen <2.0 (<2.0) mg/dL Ur Leukocyte Esterase Negative (Negative) Urine HCG, Qual Not Detected (Not Detectd) 01/26/17 Range/Units 05:45 WBC (3.8-10.6) k/uL RBC (3.80-5.40) m/uL Hgb (11.4-16.0) gm/dL Hct (34.0-46.0) % MCV (80.0-100.0) fL MCH (25.0-35.0) pg MCHC (31.0-37.0) g/dL RDW (11.5-15.5) % Plt Count (150-450) k/uL Neutrophils % % Lymphocytes % % Monocytes % % Eosinophils % % Basophils % % Neutrophils # (1.3-7.7) k/uL Lymphocytes # (1.0-4.8) k/uL Monocytes # (0-1.0) k/uL Eosinophils # (0-0.7) k/uL Basophils # (0-0.2) k/uL Sodium 137 (137-145) mmol/L Potassium 4.4 (3.5-5.1) mmol/L Chloride 108 H (98-107) mmol/L Carbon Dioxide 19 L (22-30) mmol/L Anion Gap 10 mmol/L BUN 8 (7-17) mg/dL Creatinine 0.60 (0.52-1.04) mg/dL Est GFR (MDRD) Af Amer >60 (>60 ml/min/1.73 sqM) Est GFR (MDRD) Non-Af >60 (>60 ml/min/1.73 sqM) Glucose 107 H (74-99) mg/dL Calcium 9.1 (8.4-10.2) mg/dL Total Bilirubin 0.3 (0.2-1.3) mg/dL AST 24 (14-36) U/L ALT 40 (9-52) U/L Alkaline Phosphatase 59 (38-126) U/L C-Reactive Protein 15.5 H (<10.0) mg/L Total Protein 7.0 (6.3-8.2) g/dL Albumin 4.0 (3.5-5.0) g/dL Amylase 32 (30-110) U/L Lipase 31 (23-300) U/L Urine Color Urine Appearance (Clear) Urine pH (5.0-8.0) Ur Specific [place] (1.001-1.035) Urine Protein (Negative) Urine Glucose (UA) (Negative) Urine Ketones (Negative) Urine Blood (Negative) Urine Nitrite (Negative) Urine Bilirubin (Negative) Urine Urobilinogen (<2.0) mg/dL Ur Leukocyte Esterase (Negative) Urine HCG, Qual (Not Detectd) Disposition <Sagar Gardner - Last Filed: 01/26/17 08:34> <Christo Ruiz - Last Filed: 01/26/17 09:49> Clinical Impression: Obstipation Disposition: HOME SELF-CARE Condition: Good Instructions: Obstipation (ED) Prescriptions: Metoclopramide [Reglan] 5 mg PO ACHS #20 tab Referrals: José Jackson DO [Primary Care Provider] - 1-2 days
--- NOTE | 2017-01-26 08:58 | CT ---
EXAMINATION TYPE: CT abdomen pelvis wo con DATE OF EXAM: 01/26/2017 HISTORY: Abd pain with nausea and vomiting CT DLP: 2293.1 mGycm. Automated Exposure Control for Dose Reduction was Utilized. TECHNIQUE: CT scan of the abdomen and pelvis is performed without oral or IV contrast. COMPARISON: Gallbladder ultrasound 3 days earlier. FINDINGS: Within the limitations of a non-contrast study, the following observations are made. LUNG BASES: No significant abnormality is appreciated. LIVER/GB: Dependent small stones are redemonstrated in gallbladder. There is no CT evidence for acute cholecystitis. PANCREAS: No significant abnormality is seen. SPLEEN: No significant abnormality is seen. ADRENALS: No significant abnormality is seen. KIDNEYS: No renal stones or hydronephrosis is evident bilaterally. BOWEL: Evaluation of the bowel is slightly suboptimal secondary to lack of enteric contrast. There is no suspicious small or large bowel dilatation. Normal-appearing appendix is seen ascending from the cecum which is slightly low lying anteriorly in the midline of the pelvis. GENITAL ORGANS: Uterus is anteverted in shape and within normal limits in size. Both ovaries are iden tified and not suspiciously enlarged. A few scattered pelvic phleboliths are seen. LYMPH NODES: No greater than 1cm abdominal or pelvic lymph nodes are appreciated. OSSEOUS STRUCTURES: There is prominent spur disc complex L1-L2 disc space level significantly effacin g anterior thecal sac seen on sagittal image 7 and axial image 30. There is partially sacralized left L5 segment noted. OTHER: No significant additional abnormality is seen. IMPRESSION: 1. No bowel obstruction is seen. No significant acute finding is seen to account for patient's sympto ms. 2. Note is made of prominent spur disc complex L1-L2 level causing significant spinal canal effacemen t. Consider nonemergent MRI lumbar spine correlation.
[2017-01-26 09:01] VITALS: BP 123/57; PULSE 71; TEMP 97.8
== END 2017-01-26 09:57 | disposition home or self-care (01) ==
LOC: EC 01:45
DX: K59.00 Constipation, unspecified (principal); E07.9 Disorder of thyroid, unspecified; K21.9 Gastro-esophageal reflux disease without esophagitis; F32.9 Major depressive disorder, single episode, unspecified; F41.9 Anxiety disorder, unspecified; E66.9 Obesity, unspecified; Z91.048 Other nonmedicinal substance allergy status; Z79.899 Other long term (current) drug therapy; Z79.3 Long term (current) use of hormonal contraceptives; Z68.43 Body mass index [BMI] 50.0-59.9, adult
CPT/HCPCS: 36415; 74022; 74176; 80053; 81003; 81025; 82150; 83690; 85025; 86140; 99284

== ENCOUNTER 2017-06-02 20:14 | Emergency (ER) | payer OTHER ==
[2017-06-02 20:20] VITALS: BP 140/71; PULSE 84; RESP 18; TEMP 98.1
--- NOTE | 2017-06-02 20:33 | ED ---
General Adult HPI - General Chief complaint: Upper Respiratory Infection Stated complaint: congestion Time Seen by Provider: 06/02/17 20:21 Source: patient, RN notes reviewed Mode of arrival: ambulatory Limitations: no limitations - History of Present Illness Initial comments: Patient referral female who presents emergency room today with a chief complaint of cough congestion over the last 2 weeks. Does admit to positive sputum has been green in color. Does admit to increased rhinorrhea. Patient is to bodyaches. Admits to chills. Patient denies any other complaints or symptoms. Patient denies any recent shortness of breath, chest pain, back pain, abdominal pain, nausea or vomiting, numbness or tingling, headaches or visual changes, or any other complaints. - Related Data Home Medications Medication Instructions Recorded Confirmed Citalopram Hydrobromide 40 mg PO HS 07/21/14 06/02/17 [Citalopram HBr] Norgestimate-Ethinyl Estradiol 1 tab PO HS 07/21/14 06/02/17 [Sprintec 28 Day Tablet] Ranitidine HCl [Zantac] 150 mg PO HS 08/04/16 06/02/17 Ergocalciferol [Vitamin D2] 50,000 unit PO TH 11/15/16 06/02/17 Levothyroxine Sodium [Synthroid] 100 mcg PO DAILY 11/15/16 06/02/17 Dextroamphetamine/Amphetamine 10 mg PO BID@0800,1400 03/10/17 06/02/17 [Adderall] Previous Rx's Medication Instructions Recorded Ibuprofen [Motrin] 600 mg PO Q8HR PRN #30 tab 03/10/17 Azithromycin [Zithromax Z-pack] 0 mg PO DIRECTED #6 tab 06/02/17 Allergies Allergy/AdvReac Type Severity Reaction Status Date / Time adhesive tape Allergy Itching Verified 06/02/17 20:20 Review of Systems ROS Statement: Those systems with pertinent positive or pertinent negative responses have been documented in the HPI. ROS Other: All systems not noted in ROS Statement are negative. Past Medical History Past Medical History: GERD/Reflux, Thyroid Disorder History of Any Multi-Drug Resistant Organisms: None Reported Past Surgical History: Adenoidectomy, Ear Surgery, Tonsillectomy Past Psychological History: Anxiety, Depression Smoking Status: Never smoker Past Alcohol Use History: Rare Past Drug Use History: None Reported General Exam - General Exam Comments Initial Comments: General: The patient is awake and alert, in no distress, and does not appear acutely ill. Eye: Pupils are equal, round and reactive to light, extra-ocular movements are intact. No nystagmus. There is normal conjunctiva bilaterally. No signs of icterus. Ears, nose, mouth and throat: There are moist mucous membranes and no oral lesions. Neck: The neck is supple, there is no tenderness or JVD. Cardiovascular: There is a regular rate and rhythm. No murmur, rub or gallop is appreciated. Respiratory: Lungs are clear to auscultation, respirations are non-labored, breath sounds are equal. No wheezes, stridor, rales, or rhonchi. Musculoskeletal: Normal ROM, no tenderness. Strength 5/5. Sensation intact. Pulses equal bilaterally 2+. Neurological: A&O x 3. CN II-XII intact, There are no obvious motor or sensory deficits. Coordination appears grossly intact. Speech is normal. Skin: Skin is warm and dry and no rashes or lesions are noted. Psychiatric: Cooperative, appropriate mood & affect, normal judgment. Limitations: no limitations Course Vital Signs 06/02/17 20:18 Temperature 98.1 F Pulse Rate 84 Respiratory 18 Rate Blood Pressure 140/71 O2 Sat by Pulse 98 Oximetry Medical Decision Making - Medical Decision Making Patient will be treated for bronchitis infection as she has had cough congestion over the last 2 weeks with positive sputum production it's been green in color. Patient is advised follow-up family doctor over the next 5 days if symptoms are not improving. Advised return to emergency room symptoms increase worsen. Disposition Clinical Impression: Acute bronchitis Disposition: HOME SELF-CARE Condition: Good Instructions: Acute Bronchitis (ED) Additional Instructions: Please use medication as discussed. Please follow-up with family doctor in the next 2-5 days of symptoms have not improved. Please return to emergency room if the symptoms increase or worsen or for any other concerns. Prescriptions: Azithromycin [Zithromax Z-pack] 0 mg PO DIRECTED #6 tab Referrals: José Jackson DO [Primary Care Provider] - 1-2 days Time of Disposition: 20:32
== END 2017-06-02 20:41 | disposition home or self-care (01) ==
LOC: EC 20:14
DX: J20.9 Acute bronchitis, unspecified (principal); K21.9 Gastro-esophageal reflux disease without esophagitis; E07.9 Disorder of thyroid, unspecified; F32.9 Major depressive disorder, single episode, unspecified; F41.9 Anxiety disorder, unspecified; Z79.3 Long term (current) use of hormonal contraceptives; Z79.899 Other long term (current) drug therapy; Z91.048 Other nonmedicinal substance allergy status
CPT/HCPCS: 99283

== ENCOUNTER 2017-06-09 20:32 | Emergency (ER) | payer OTHER ==
[2017-06-09 20:45] VITALS: BP 124/59; PULSE 114; RESP 22; TEMP 102.6
--- NOTE | 2017-06-09 21:19 | ED ---
URI HPI - General Chief Complaint: Upper Respiratory Infection Stated Complaint: fever/SOB Time Seen by Provider: 06/09/17 21:00 Source: patient, RN notes reviewed, old records reviewed Mode of arrival: ambulatory Limitations: no limitations - History of Present Illness Initial Comments: This is a 22-year-old female who is had upper respiratory issues with past couple weeks who states her last today she's had increased problems with rhinorrhea fevers chills sweats cough some shortness of breath some nonspecific headache. She states she was diagnosed with bronchitis over a week ago and placed on Zithromax. Was getting better now she is worse again. MD Complaint: fever, cough, rhinorrhea, nasal congestion - Related Data Home Medications Medication Instructions Recorded Confirmed Norgestimate-Ethinyl Estradiol 1 tab PO HS 07/21/14 06/09/17 [Sprintec 28 Day Tablet] Ranitidine HCl [Zantac] 150 mg PO HS 08/04/16 06/09/17 Ergocalciferol [Vitamin D2] 50,000 unit PO TH 11/15/16 06/09/17 Levothyroxine Sodium [Synthroid] 100 mcg PO DAILY 11/15/16 06/09/17 Dextroamphetamine/Amphetamine 10 mg PO BID 03/10/17 06/09/17 [Adderall] Naproxen 500 mg PO BID PRN 06/09/17 06/09/17 Previous Rx's Medication Instructions Recorded Oseltamivir [Tamiflu] 75 mg PO Q12HR #14 cap 06/09/17 Allergies Allergy/AdvReac Type Severity Reaction Status Date / Time adhesive tape Allergy Itching Verified 06/09/17 21:03 Review of Systems ROS Statement: Those systems with pertinent positive or pertinent negative responses have been documented in the HPI. ROS Other: All systems not noted in ROS Statement are negative. Past Medical History Past Medical History: GERD/Reflux, Thyroid Disorder History of Any Multi-Drug Resistant Organisms: None Reported Past Surgical History: Adenoidectomy, Ear Surgery, Tonsillectomy Past Psychological History: Anxiety, Depression Smoking Status: Never smoker Past Alcohol Use History: Rare Past Drug Use History: None Reported General Exam - General Exam Comments Initial Comments: This a well-developed well-nourished awake alert oriented 3 female Limitations: no limitations General appearance: alert, in no apparent distress Head exam: Present: atraumatic, normocephalic, normal inspection Eye exam: Present: normal appearance, PERRL, EOMI. Absent: scleral icterus, conjunctival injection, periorbital swelling ENT exam: Present: other (Boggy nasal mucosa. TMs are within normal limits oropharynx appears be clear) Neck exam: Present: normal inspection, full ROM. Absent: tenderness, meningismus, lymphadenopathy Respiratory exam: Present: decreased breath sounds Cardiovascular Exam: Present: tachycardia GI/Abdominal exam: Present: soft, normal bowel sounds. Absent: distended, tenderness, guarding, rebound, rigid Rectal exam: Present: deferred Extremities exam: Present: normal inspection, full ROM, normal capillary refill. Absent: tenderness, pedal edema, joint swelling, calf tenderness Back exam: Present: normal inspection Neurological exam: Present: alert, oriented X3, CN II-XII intact Psychiatric exam: Present: normal affect, normal mood Skin exam: Present: warm, dry, intact, normal color. Absent: rash Course Vital Signs 06/09/17 20:42 Temperature 102.6 F H Pulse Rate 114 H Respiratory 22 Rate Blood Pressure 124/59 O2 Sat by Pulse 97 Oximetry Medical Decision Making - Medical Decision Making I did discuss the x-ray and lab results with the patient she is positive for influenza type A. She will be placed on Tamiflu as he symptoms started within the past 2 days. She'll be discharged with a prescription for the same also increase fluids and symptomatic care otherwise. - Lab Data Lab Results 06/09/17 Range/Units 21:23 Influenza Type A RNA Detected H (Not Detectd) Influenza Type B (PCR) Not Detected (Not Detectd) - Radiology Data Radiology results: report reviewed (I did review the imaging and reports no acute findings.), image reviewed Disposition Clinical Impression: Influenza, Febrile illness, acute Disposition: HOME SELF-CARE Condition: Good Instructions: Influenza (ED), Fever in Adults (ED) Prescriptions: Oseltamivir [Tamiflu] 75 mg PO Q12HR #14 cap Referrals: José Jackson DO [Primary Care Provider] - 1-2 days
--- NOTE | 2017-06-09 21:45 | XR ---
EXAMINATION TYPE: XR chest 2V DATE OF EXAM ORDERED: 06/09/2017 HISTORY: cough. REFERENCE: Previous study dated 07/05/2015. FINDINGS: The lungs are clear. Pleural spaces are clear. Heart size is normal. IMPRESSION: NORMAL CHEST.
[2017-06-09] MEDS ORDERED: OSELTAMIVIR 75 MG CAP PO STA (21:57)
== END 2017-06-09 22:19 | disposition home or self-care (01) ==
LOC: EC 20:32
DX: K21.9 Gastro-esophageal reflux disease without esophagitis (principal); E07.9 Disorder of thyroid, unspecified; F32.9 Major depressive disorder, single episode, unspecified; F41.9 Anxiety disorder, unspecified; Z79.3 Long term (current) use of hormonal contraceptives; Z79.899 Other long term (current) drug therapy; Z91.048 Other nonmedicinal substance allergy status
CPT/HCPCS: 71046; 87502; 99284

== ENCOUNTER 2018-03-26 16:43 | Emergency (ER) | payer OTHER ==
[2018-03-26 16:57] VITALS: RESP 18
[2018-03-26] MEDS ORDERED: IBUPROFEN 600 MG TAB PO STA (17:23)
[2018-03-26] MEDS ORDERED: LIDOCAINE 2% GEL 30 ML TUBE TOPICAL ONE (17:38)
--- NOTE | 2018-03-26 17:39 | ED ---
Skin/Abscess/FB HPI - General Chief complaint: Skin/Abscess/Foreign Body Stated complaint: Female Time Seen by Provider: 03/26/18 17:08 Source: patient Mode of arrival: ambulatory Limitations: no limitations - History of Present Illness Initial comments: 22-year-old female patient presents to the emergency department today with complaints of burning and pain to her genitalia. Patient states on Tuesday she used Cardenas hair removal cream over the area. She left the cream on for 7 minutes as directed on the bottle. States that she has done this in the past that there was a new sponge application system that she was using. Patient states that she did develop blisters to the area which have opened. Patient states that she is having some clear yellowish drainage from the area. She denies any swelling. Denies any fevers or chills with this. States when she urinates causes the pain to increase. She denies any abnormal vaginal bleeding or discharge. Denies abdominal pain or back pain. Patient denies any recent shortness breath, chest pain, nausea, vomiting, diarrhea, constipation, numbness , tingling, dizziness, weakness, hematuria, headache, visual changes, or any other complaints. - Related Data Home Medications Medication Instructions Recorded Confirmed Norgestimate-Ethinyl Estradiol 1 tab PO HS 07/21/14 06/09/17 [Sprintec 28 Day Tablet] Ranitidine HCl [Zantac] 150 mg PO HS 08/04/16 06/09/17 Ergocalciferol [Vitamin D2] 50,000 unit PO TH 11/15/16 06/09/17 Levothyroxine Sodium [Synthroid] 100 mcg PO DAILY 11/15/16 06/09/17 Dextroamphetamine/Amphetamine 10 mg PO BID 03/10/17 06/09/17 [Adderall] Naproxen 500 mg PO BID PRN 06/09/17 06/09/17 Previous Rx's Medication Instructions Recorded Oseltamivir [Tamiflu] 75 mg PO Q12HR #14 cap 06/09/17 Allergies Allergy/AdvReac Type Severity Reaction Status Date / Time adhesive tape Allergy Itching Verified 03/26/18 16:56 Review of Systems ROS Statement: Those systems with pertinent positive or pertinent negative responses have been documented in the HPI. ROS Other: All systems not noted in ROS Statement are negative. Past Medical History Past Medical History: GERD/Reflux, Thyroid Disorder History of Any Multi-Drug Resistant Organisms: None Reported Past Surgical History: Adenoidectomy, Ear Surgery, Tonsillectomy Past Psychological History: Anxiety, Depression Smoking Status: Never smoker Past Alcohol Use History: Rare Past Drug Use History: None Reported General Exam Limitations: no limitations General appearance: alert, in no apparent distress, other (This is a well- developed, well-nourished adult female patient in no acute distress. Vital signs upon presentation are temperature 98.2F, pulse 81, respirations 18, blood pressure 91/67, pulse ox 99% on room air.) Respiratory exam: Present: normal lung sounds bilaterally. Absent: respiratory distress, wheezes, rales, rhonchi, stridor Cardiovascular Exam: Present: regular rate, normal rhythm, normal heart sounds. Absent: systolic murmur, diastolic murmur, rubs, gallop, clicks GI/Abdominal exam: Present: soft, normal bowel sounds. Absent: distended, tenderness, guarding, rebound, rigid External exam: Present: other (Tenderness over the inferior labia minora, no swelling, no evidence of abscess, small amount of clear drainage.). Absent: normal external exam, erythema Neurological exam: Present: alert, oriented X3, CN II-XII intact Psychiatric exam: Present: normal affect, normal mood Skin exam: Present: warm, dry, intact, normal color. Absent: rash Course Vital Signs 03/26/18 16:53 Temperature 98.2 F Pulse Rate 81 Respiratory 18 Rate Blood Pressure 91/67 O2 Sat by Pulse 99 Oximetry Medical Decision Making - Medical Decision Making 22-year-old female patient presented to the emergency department today for evaluation of burning and pain to her genitalia after using Cardenas hair removal cream on Tuesday. Physical examination is relatively unremarkable, she did have some tenderness to the inferior labia minora. There is no redness, swelling, evidence of abscess, or infection. Patient symptoms are consistent with chemical burn. We will give viscous lidocaine to apply for pain relief. She is instructed to take anti-inflammatories and use cool compresses for pain relief. She is instructed to follow-up with her primary care physician for recheck in 1-2 days. Return parameters discussed in detail. She verbalizes understanding and agrees with this plan. Disposition Clinical Impression: Chemical burn Disposition: HOME SELF-CARE Condition: Good Instructions: Chemical Skin Burn (ED) Additional Instructions: Use lidocaine gel every 4-6 hours as needed. Keep area clean. Follow-up through primary care physician for recheck in 1-2 days. Return immediately for any new, worsening, or concerning symptoms. Is patient prescribed a controlled substance at d/c from ED?: No Referrals: José Jackson DO [Primary Care Provider] - 1-2 days Time of Disposition: 17:39
[2018-03-26 18:17] VITALS: BP 134/73; PULSE 68; TEMP 98.4
== END 2018-03-26 18:15 | disposition home or self-care (01) ==
LOC: EC 16:43
DX: T21.47XA Corrosion of unspecified degree of female genital region, initial encounter (principal); K21.9 Gastro-esophageal reflux disease without esophagitis; E07.9 Disorder of thyroid, unspecified; F32.9 Major depressive disorder, single episode, unspecified; F41.9 Anxiety disorder, unspecified; Z79.3 Long term (current) use of hormonal contraceptives; Z79.899 Other long term (current) drug therapy; Z91.048 Other nonmedicinal substance allergy status
CPT/HCPCS: 99283